=== PATIENT | male | born 1955 | race Caucasian/White ===

== ENCOUNTER 2019-05-22 11:59 | Inpatient (IN) ==
[~2019-05-22 11:59] MED LIST: CYCLOBENZAPRINE 10 MG TABLET PO PRN; DEXTROSE 50% 25 GM/50 ML VIAL IV PRN; GLUCAGON 1 MG VIAL IM PRN; ZALEPLON 5 MG CAPSULE PO PRN
[2019-05-22 14:23] LABS: ABG Base Excess 4.1 MMOL/L (-2.5-2.5); ABG HCO3 27.9 MMOL/L (20-26); ABG Oxygen Saturation 92.9 % (95-100); ABG PCO2 46.4 MM HG (35-48); ABG PH 7.413 (7.35-7.45); ABG PO2 66.6 MM HG (80-95); Allen Test Positive; Pt O2 Delivery Device Room Air
[2019-05-22 14:24] LABS: Basophils % 0.3 % (0.0-0.8); Eosinophils # 0.1 10*3/uL (0.0-0.87); Eosinophils % 0.9 % (0.00-10.9); Hematocrit 46.1 VOL% (42.0-52.0); Hemoglobin 15.3 GM/DL (14.0-18.0); Immature Granulocytes % 0.6 %; Immature Granulocytes Absolute 0.04 #; Lymphocytes # 1.7 10*3/uL (1.4-4.0); Lymphocytes % 24.9 % (21.2-54.2); Mean Corpuscular HGB Conc 33.2 GM/DL (32-36); Mean Corpuscular Volume 94.7 FL (87-102); Mean Platelet Volume 10.2 FL (9.6-12.0); Monocytes % 7.9 % (1.7-12.7); Neutrophils % 65.4 % (38.7-73.9); Platelet Count 177 T/CUMM (130-400); Red Blood Count 4.87 MC/CUMM (3.8-5.5); Red Cell Distribution Width 13.1 % (9.3-17.3); White Blood Count 6.9 T/CUMM (4-12)
[2019-05-22] MEDS ORDERED: SODIUM CHLORIDE 0.9% 1,000 ML IV SCH (14:30)
[2019-05-22 14:42] LABS: Albumin 3.3 G/DL (3.4-5.0); Bilirubin,Total 0.5 MG/DL (0.2-1.0); Calcium 9.2 MG/DL (8.5-10.1); Osmolality,Calculated 282.4 MOS/KG (273-304); Total Protein 7.4 G/DL (6.4-8.3)
[2019-05-22] MEDS: predniSONE 20 MG TABLET PO SCH ×2 (14:53→20:50)
[2019-05-22] MEDS: hydroCHLOROthiazide 12.5 MG CAPSULE PO SCH (14:56)
[2019-05-22] MEDS: CHLORHEXIDINE 4% SOLN 118 ML BOTTLE TOP SCH ×2 (14:57→22:30)
[2019-05-22] MEDS: CHLORHEXIDINE 0.12% ORAL RINSE 60 ML BOTTLE SWISH/SPIT SCH (20:49)
[2019-05-22] MEDS ORDERED: traZODone 50 MG TABLET PO SCH (21:00)
[2019-05-22] MEDS ORDERED: ATORVASTATIN 20 MG TABLET PO SCH (21:00)
[2019-05-23] MEDS ORDERED: VANCOMYCIN 500 MG VIAL ONE (04:21)
[2019-05-23] MEDS ORDERED: VANCOMYCIN 1,000 MG VIAL ONE (04:21)
[2019-05-23] MEDS ORDERED: PAPAVERINE 60 MG/2 ML VIAL ONE (04:21)
[2019-05-23] MEDS ORDERED: FAMOTIDINE 20 MG TABLET PO ONE (05:00)
[2019-05-23] MEDS ORDERED: DIAZEPAM 5 MG TABLET PO ONE (05:00)
[2019-05-23] MEDS ORDERED: CEFUROXIME INJ 1,500 MG in SYRINGE 1 EACH IV ONE (05:00)
[2019-05-23 08:14] LABS: Hemoglobin Heart Surgery 14.3 G/DL (14.0-18.0); PCO2 Patient Temp Venous 54.7 MM HG; PH Patient Temp Venous 7.336; PO2 Patient Temp Venous 43.1 MM HG; Potassium Heart/CVR 4.1 MMOL/L (3.5-5.1); VBG Base Excess 1.6 MEQ/L (0-4); VBG HCO3 28.6 MEQ/L (24-28); VBG Oxygen Saturation 73.7 %; VBG PCO2 54.7 MMHG (41-51); VBG PH 7.336; VBG PO2 43.1 MMHG (17-40)
[2019-05-23] MEDS ORDERED: NITROPRUSSIDE 50 MG/2 ML VIAL ONE (08:24)
[2019-05-23] MEDS ORDERED: PHENYLEPHRINE DRIP 40 MG/250 ML PREMIX IV ONE (08:24)
[2019-05-23] MEDS ORDERED: CALCIUM CHLORIDE 1,000 MG/10 ML SYRINGE IV ONE (08:24)
[2019-05-23] MEDS ORDERED: SODIUM BICARBONATE 50 MEQ/50 ML VIAL IV ONE ×2 (08:24→12:10)
[2019-05-23] MEDS ORDERED: POTASSIUM CHLORIDE RIDER 100 ML IV ONE (08:25)
[2019-05-23 08:44] LABS: Apearance,Urine CLEAR (Clear); Bilirubin,Urine Negative (Negative); Blood, Urine Negative (Negative); Glucose,Urine (UA) Negative (Negative); Ketones,Urine Negative (Negative); Mucus,Urine Many /LPF (Occasional); Nitrite,Urine Negative (Negative); Protein,Urine Negative; RBC,Urine 2 /HPF (0-4); Urine Color Yellow (Yellow); Urine Specific Gravity 1.023 (1.001-1.035); Urine Urobilinogen < 2.0 EU/DL (0.2-1.0); WBC,Urine 1 /HPF (0-6)
[2019-05-23] MEDS: predniSONE 20 MG TABLET PO SCH (09:00)
[2019-05-23] MEDS: CHLORHEXIDINE 4% SOLN 118 ML BOTTLE TOP SCH (09:00)
[2019-05-23] MEDS: hydroCHLOROthiazide 12.5 MG CAPSULE PO SCH (09:00)
[2019-05-23] MEDS: CHLORHEXIDINE 0.12% ORAL RINSE 60 ML BOTTLE SWISH/SPIT SCH ×2 (09:00→21:02)
[2019-05-23 10:14] LABS: Hematocrit Heart Surgery 32.2 PERCENT (42-52); Hemoglobin Heart Surgery 10.4 G/DL (14.0-18.0); PCO2 Patient Temp Venous 35.5 MM HG; PH Patient Temp Venous 7.474; PO2 Patient Temp Venous 37.8 MM HG; Potassium Heart/CVR 4.4 MMOL/L (3.5-5.1); VBG Base Excess 2.7 MEQ/L (0-4); VBG HCO3 26.5 MEQ/L (24-28); VBG Oxygen Saturation 81.9 %; VBG PCO2 39.1 MMHG (41-51); VBG PH 7.445; VBG PO2 43.4 MMHG (17-40)
[2019-05-23 10:41] LABS: Hematocrit Heart Surgery 33.2 PERCENT (42-52); Hemoglobin Heart Surgery 10.7 G/DL (14.0-18.0); PCO2 Patient Temp Venous 31.7 MM HG; PH Patient Temp Venous 7.512; PO2 Patient Temp Venous 34.4 MM HG; Potassium Heart/CVR 4.4 MMOL/L (3.5-5.1); VBG Base Excess 2.9 MEQ/L (0-4); VBG HCO3 26.7 MEQ/L (24-28); VBG Oxygen Saturation 81.8 %; VBG PCO2 36.7 MMHG (41-51); VBG PH 7.467; VBG PO2 42.4 MMHG (17-40)
[2019-05-23 11:10] LABS: Hemoglobin Heart Surgery 11.4 G/DL (14.0-18.0); PCO2 Patient Temp Venous 34.9 MM HG; PH Patient Temp Venous 7.488; PO2 Patient Temp Venous 41.8 MM HG; Potassium Heart/CVR 4.5 MMOL/L (3.5-5.1); VBG Base Excess 2.7 MEQ/L (0-4); VBG HCO3 25.9 MEQ/L (24-28); VBG Oxygen Saturation 79.9 %; VBG PCO2 34.9 MMHG (41-51); VBG PH 7.488; VBG PO2 41.8 MMHG (17-40)
[2019-05-23 11:39] LABS: Hemoglobin Heart Surgery 12.1 G/DL (14.0-18.0); PCO2 Patient Temp Venous 39.6 MM HG; PH Patient Temp Venous 7.452; PO2 Patient Temp Venous 43.4 MM HG; Potassium Heart/CVR 3.9 MMOL/L (3.5-5.1); VBG Base Excess 2.9 MEQ/L (0-4); VBG Oxygen Saturation 80.1 %; VBG PCO2 39.6 MMHG (41-51); VBG PH 7.452; VBG PO2 43.4 MMHG (17-40)
[2019-05-23] MEDS ORDERED: MAGNESIUM SULFATE 5 GM/10 ML VIAL IV ONE (12:08)
[2019-05-23] MEDS ORDERED: HEPARIN 10,000 UNIT/10 ML VIAL ONE ×2 (12:09→13:59)
[2019-05-23] MEDS ORDERED: FUROSEMIDE 20 MG/2 ML VIAL ONE (12:09)
[2019-05-23] MEDS ORDERED: PROTAMINE SULFATE 50 MG/5 ML VIAL IV ONE ×2 (12:09→14:13)
[2019-05-23 12:10] LABS: ABG Oxygen Saturation 98.2 % (95-100); ABG PH 7.479 (7.35-7.45); ABG PO2 134.1 MM HG (80-95); Glucose Heart Surgery 169 MG/DL (74-106); Hemoglobin Heart Surgery 12.3 G/DL (14.0-18.0); Ionized Calcium Arterial 1.22 MMOL/L (1.21-1.46); PH Patient Temp Arterial 7.479; PO2 Patient Temp Arterial 134.1 MM HG; Patient Temperature 37 CELCIUS; Potassium Heart/CVR 3.4 MMOL/L (3.5-5.1); Sodium Heart/CVR 134 MMOL/L (135-145)
[2019-05-23] MEDS ORDERED: DEXTROSE 5% KCL 20 MEQ 20 MEQ/1,000 ML BAG IV ONE (12:10)
[2019-05-23] MEDS ORDERED: LIDOCAINE 2% 5 ML VIAL ONE (12:10)
[2019-05-23] MEDS ORDERED: methylPREDNISolone SOD SUC 1,000 MG/8 ML VIAL ONE (12:10)
[2019-05-23] MEDS: SODIUM CHLORIDE 0.45% 1,000 ML IV SCH (13:10)
[2019-05-23] MEDS ORDERED: POTASSIUM CHLORIDE RIDER 10 MEQ in PREMIX 1 EACH IV PRN (13:14)
[2019-05-23] MEDS ORDERED: INSULIN REGULAR 100 UNIT/ML IV ONE (13:14)
[2019-05-23] MEDS ORDERED: DEXTROSE 10% 250 ML BAG IV PRN ×2 (13:14)
[2019-05-23] MEDS ORDERED: INSULIN REGULAR 100 UNIT/ML IV PRN (13:14)
[2019-05-23] MEDS ORDERED: MORPHINE 10 MG/1 ML VIAL IV PRN (13:14)
[2019-05-23] MEDS ORDERED: VECURONIUM 10 MG VIAL IV PRN ×2 (13:14)
[2019-05-23] MEDS ORDERED: MAGNESIUM SULF RIDER 2 GM in PREMIX 1 EACH IV PRN (13:14)
[2019-05-23] MEDS ORDERED: NITROPRUSSIDE 100 MG in DEXTROSE 5% 250 ML IV PRN (13:14)
[2019-05-23] MEDS ORDERED: MAGNESIUM SULF RIDER 4 GM in PREMIX 1 EACH IV PRN (13:14)
[2019-05-23] MEDS ORDERED: CALCIUM CHLORIDE 1,000 MG/10 ML SYRINGE IV PRN (13:14)
[2019-05-23] MEDS ORDERED: PHENYLEPHRINE DRIP 40 MG/250 ML PREMIX IV PRN (13:14)
[2019-05-23] MEDS ORDERED: MIDAZOLAM 10 MG/2 ML VIAL IV PRN (13:14)
[2019-05-23] MEDS ORDERED: MIDAZOLAM 2 MG/2 ML VIAL IV PRN (13:14)
[2019-05-23] MEDS ORDERED: ACETAMINOPHEN 650 MG SUPP RECTAL PRN (13:14)
[2019-05-23 13:28] LABS: Basophils % 0.2 % (0.0-0.8); Eosinophils % 0.1 % (0.00-10.9); Hematocrit 37.4 VOL% (42.0-52.0); Immature Granulocytes % 0.6 %; Immature Granulocytes Absolute 0.12 #; Lymphocytes # 1.8 10*3/uL (1.4-4.0); Lymphocytes % 9.5 % (21.2-54.2); Mean Corpuscular HGB Conc 33.4 GM/DL (32-36); Mean Corpuscular Volume 94.7 FL (87-102); Mean Platelet Volume 10.5 FL (9.6-12.0); Monocytes % 5.2 % (1.7-12.7); Neutrophils % 84.4 % (38.7-73.9); Red Blood Count 3.95 MC/CUMM (3.8-5.5); Red Cell Distribution Width 13.1 % (9.3-17.3)
[2019-05-23 13:30] LABS: Hemoglobin 12.5 GM/DL (14.0-18.0); Platelet Count 159 T/CUMM (130-400); White Blood Count 18.9 T/CUMM (4-12)
[2019-05-23] MEDS ORDERED: INSULIN REGULAR DRIP 100 ML IV SCH (13:30)
[2019-05-23] MEDS ORDERED: SODIUM CHLORIDE 0.45% 1,000 ML IV SCH (13:30)
[2019-05-23 13:34] LABS: INR 1.1; PT Patient Result 11.4 SECS (9.6-12.2); Partial Thromboplastin Time 26.1 SECS (20.8-36.0)
[2019-05-23 13:50] LABS: Albumin 2.9 G/DL (3.4-5.0); Bilirubin,Total 1.4 MG/DL (0.2-1.0); Osmolality,Calculated 283.4 MOS/KG (273-304); Total Protein 5.9 G/DL (6.4-8.3)
[2019-05-23 13:51] LABS: CKMB % 5.3 %
[2019-05-23 13:56] LABS: Troponin I 4.21 NG/ML (0.00-0.045)
[2019-05-23] MEDS ORDERED: CALCIUM CHLORIDE 1,000 MG/10 ML VIAL IV ONE (13:59)
[2019-05-23] MEDS ORDERED: HEPARIN/NACL 0.9% 2 UNITS/ML 500 ML IV ONE (13:59)
[2019-05-23] MEDS ORDERED: SEVOFLURANE 1 UNIT/15 MINUTE INH ONE (13:59)
[2019-05-23] MEDS ORDERED: VECURONIUM 10 MG VIAL IV ONE (14:00)
[2019-05-23] MEDS ORDERED: MIDAZOLAM 10 MG/2 ML VIAL ONE (14:00)
[2019-05-23] MEDS ORDERED: SUFentanil 250 MCG/5 ML AMP ONE (14:00)
[2019-05-23] MEDS ORDERED: ESMOLOL 100 MG/10 ML VIAL IV ONE (14:00)
[2019-05-23] MEDS ORDERED: NITROGLYCERIN DRIP 50 MG/250 ML BOTTLE IV ONE (14:01)
[2019-05-23] MEDS ORDERED: SODIUM CHLORIDE 0.9% 1,000 ML IV ONE (14:01)
[2019-05-23] MEDS ORDERED: SODIUM CHLORIDE 0.9% 100 ML IV ONE (14:01)
[2019-05-23] MEDS ORDERED: AMINOCAPROIC ACID 5,000 MG/20 ML VIAL ONE (14:01)
[2019-05-23] MEDS ORDERED: LACTATED RINGERS 1,000 ML IV ONE (14:01)
[2019-05-23] MEDS ORDERED: PHENYLEPHRINE DRIP 20 MG/250 ML PREMIX IV ONE (14:02)
[2019-05-23] MEDS: ALBUMIN 5% 12.5 GM in PREMIX 1 EACH IV PRN ×5 (14:10→17:52)
[2019-05-23 14:31] LABS: ABG Base Excess -0.5 MMOL/L (-2.5-2.5); ABG Oxygen Saturation 98.7 % (95-100); ABG PCO2 35.8 MM HG (35-48); ABG PH 7.424 (7.35-7.45); ABG TCO2 20.6 MMOL/L (23-27); Glucose Heart Surgery 163 MG/DL (74-106); Hematocrit Heart Surgery 37.8 PERCENT (42-52); Hemoglobin Heart Surgery 12.3 G/DL (14.0-18.0); Potassium Heart/CVR 3.9 MMOL/L (3.5-5.1)
[2019-05-23] MEDS: KETOROLAC 30 MG/1 ML VIAL IV SCH ×2 (14:46→20:41)
[2019-05-23] MEDS: LACTATED RINGERS 250 ML IV PRN ×3 (15:53→18:05)
[2019-05-23 16:30] LABS: ABG Base Excess -0.6 MMOL/L (-2.5-2.5); ABG HCO3 23.9 MMOL/L (20-26); ABG PCO2 35.5 MM HG (35-48); ABG PH 7.426 (7.35-7.45); ABG TCO2 20.8 MMOL/L (23-27); Glucose Heart Surgery 149 MG/DL (74-106); Hematocrit Heart Surgery 34.6 PERCENT (42-52); Hemoglobin Heart Surgery 11.2 G/DL (14.0-18.0); Potassium Heart/CVR 3.9 MMOL/L (3.5-5.1)
[2019-05-23 18:20] LABS: ABG Base Excess -1.5 MMOL/L (-2.5-2.5); ABG HCO3 23.2 MMOL/L (20-26); ABG Oxygen Saturation 95.8 % (95-100); ABG PCO2 45.2 MM HG (35-48); ABG PH 7.341 (7.35-7.45); ABG PO2 86.6 MM HG (80-95); ABG TCO2 22.2 MMOL/L (23-27); Glucose Heart Surgery 150 MG/DL (74-106); Potassium Heart/CVR 4.2 MMOL/L (3.5-5.1)
[2019-05-23 18:21] LABS: Hematocrit Heart Surgery 33.1 PERCENT (42-52); Hemoglobin Heart Surgery 10.7 G/DL (14.0-18.0)
[2019-05-23] MEDS ORDERED: FUROSEMIDE 40 MG/4 ML VIAL IV ONE (18:31)
[2019-05-23] MEDS ORDERED: FUROSEMIDE 40 MG/4 ML VIAL IV PRN (18:39)
[2019-05-23] MEDS: POTASSIUM CHLORIDE RIDER 20 MEQ in PREMIX 1 EACH IV PRN ×2 (20:01→22:53)
[2019-05-23] MEDS: MORPHINE 4 MG/1 ML VIAL IV PRN (20:46)
[2019-05-23] MEDS: CEFUROXIME INJ 1,500 MG in SYRINGE 1 EACH IV SCH (21:03)
[2019-05-23 21:14] LABS: ABG Base Excess 0.4 MMOL/L (-2.5-2.5); ABG HCO3 26.7 MMOL/L (20-26); ABG Oxygen Saturation 95.9 % (95-100); ABG PCO2 50.6 MM HG (35-48); ABG PO2 92.7 MM HG (80-95); ABG TCO2 28.2 MMOL/L (23-27); Glucose Heart Surgery 144 MG/DL (74-106); Hemoglobin Heart Surgery 11.3 G/DL (14.0-18.0); Potassium Heart/CVR 4.4 MMOL/L (3.5-5.1)
[2019-05-23 22:02] LABS: CKMB % 10.1 %
[2019-05-23 22:04] LABS: Troponin I 17.3 NG/ML (0.00-0.045)
[2019-05-23 22:06] LABS: ABG Base Excess -1.8 MMOL/L (-2.5-2.5); ABG HCO3 22.9 MMOL/L (20-26); ABG Oxygen Saturation 94.8 % (95-100); ABG PCO2 58.4 MM HG (35-48); ABG PH 7.262 (7.35-7.45); ABG PO2 87.3 MM HG (80-95); ABG TCO2 24.1 MMOL/L (23-27); Glucose Heart Surgery 160 MG/DL (74-106); Hematocrit Heart Surgery 34.2 PERCENT (42-52); Hemoglobin Heart Surgery 11.1 G/DL (14.0-18.0); Potassium Heart/CVR 4.3 MMOL/L (3.5-5.1)
[2019-05-23] MEDS: ONDANSETRON 4 MG/2 ML VIAL IV PRN (22:30)
[2019-05-24] MEDS: MORPHINE 4 MG/1 ML VIAL IV PRN ×5 (00:02→18:17)
[2019-05-24 01:17] LABS: ABG Base Excess 1.1 MMOL/L (-2.5-2.5); ABG HCO3 24.4 MMOL/L (20-26); ABG Oxygen Saturation 97.2 % (95-100); ABG PCO2 34.1 MM HG (35-48); ABG PH 7.473 (7.35-7.45); ABG PO2 99.8 MM HG (80-95); ABG TCO2 25.5 MMOL/L (23-27); Glucose Heart Surgery 125 MG/DL (74-106); Hemoglobin Heart Surgery 10.9 G/DL (14.0-18.0); Potassium Heart/CVR 4.3 MMOL/L (3.5-5.1)
[2019-05-24] MEDS: KETOROLAC 30 MG/1 ML VIAL IV SCH ×4 (01:22→20:19)
[2019-05-24] MEDS: POTASSIUM CHLORIDE RIDER 20 MEQ in PREMIX 1 EACH IV PRN ×2 (01:25→06:06)
[2019-05-24 02:44] LABS: ABG Base Excess -0.1 MMOL/L (-2.5-2.5); ABG HCO3 24.3 MMOL/L (20-26); ABG Oxygen Saturation 96.2 % (95-100); ABG PCO2 54.3 MM HG (35-48); ABG PH 7.306 (7.35-7.45); ABG PO2 93.2 MM HG (80-95); ABG TCO2 24.6 MMOL/L (23-27); Glucose Heart Surgery 132 MG/DL (74-106); Hematocrit Heart Surgery 33.8 PERCENT (42-52); Potassium Heart/CVR 4.3 MMOL/L (3.5-5.1)
[2019-05-24 04:21] LABS: Basophils % 0.1 % (0.0-0.8); Hematocrit 31.5 VOL% (42.0-52.0); Hemoglobin 10.3 GM/DL (14.0-18.0); Immature Granulocytes % 0.5 %; Immature Granulocytes Absolute 0.07 #; Lymphocytes # 0.7 10*3/uL (1.4-4.0); Lymphocytes % 5.2 % (21.2-54.2); Mean Corpuscular HGB Conc 32.7 GM/DL (32-36); Mean Corpuscular Volume 96.9 FL (87-102); Mean Platelet Volume 10.9 FL (9.6-12.0); Monocytes % 5.8 % (1.7-12.7); Neutrophils % 88.4 % (38.7-73.9); Platelet Count 144 T/CUMM (130-400); Red Blood Count 3.25 MC/CUMM (3.8-5.5); Red Cell Distribution Width 13.5 % (9.3-17.3); White Blood Count 13.9 T/CUMM (4-12)
[2019-05-24 04:51] LABS: Albumin 3.4 G/DL (3.4-5.0); Bilirubin,Direct 0.17 MG/DL (0.0-0.20); Bilirubin,Total 0.7 MG/DL (0.2-1.0); Osmolality,Calculated 283.4 MOS/KG (273-304); Total Protein 6.1 G/DL (6.4-8.3)
[2019-05-24 04:57] LABS: Troponin I 23.1 NG/ML (0.00-0.045)
[2019-05-24 05:41] LABS: ABG Base Excess 0.3 MMOL/L (-2.5-2.5); ABG HCO3 24.7 MMOL/L (20-26); ABG Oxygen Saturation 96.4 % (95-100); ABG PCO2 51.3 MM HG (35-48); ABG PH 7.329 (7.35-7.45); ABG PO2 92.6 MM HG (80-95); ABG TCO2 24.5 MMOL/L (23-27); Glucose Heart Surgery 142 MG/DL (74-106); Hematocrit Heart Surgery 33.3 PERCENT (42-52); Hemoglobin Heart Surgery 10.8 G/DL (14.0-18.0); Potassium Heart/CVR 4.3 MMOL/L (3.5-5.1)
[2019-05-24 07:41] LABS: ABG HCO3 24.4 MMOL/L (20-26); ABG Oxygen Saturation 96.2 % (95-100); ABG PCO2 58.5 MM HG (35-48); ABG PH 7.285 (7.35-7.45); ABG PO2 92.8 MM HG (80-95); ABG TCO2 25.4 MMOL/L (23-27); Glucose Heart Surgery 139 MG/DL (74-106); Hematocrit Heart Surgery 32.7 PERCENT (42-52); Hemoglobin Heart Surgery 10.6 G/DL (14.0-18.0); Potassium Heart/CVR 4.6 MMOL/L (3.5-5.1)
[2019-05-24] MEDS: INSULIN REGULAR 100 UNIT/ML SUBCUT SCH ×4 (08:10→20:15)
[2019-05-24] MEDS ORDERED: ZALEPLON 5 MG CAPSULE PO PRN (08:20)
[2019-05-24] MEDS ORDERED: DEXTROSE 50% 25 GM/50 ML VIAL IV PRN (08:21)
[2019-05-24] MEDS ORDERED: GLUCAGON 1 MG VIAL IM PRN (08:21)
[2019-05-24] MEDS ORDERED: FUROSEMIDE 40 MG/4 ML VIAL IV ONE ×2 (08:23→23:55)
[2019-05-24] MEDS: hydroCHLOROthiazide 12.5 MG CAPSULE PO SCH (09:05)
[2019-05-24] MEDS: predniSONE 20 MG TABLET PO SCH ×2 (09:15→21:51)
[2019-05-24] MEDS: CHLORHEXIDINE 0.12% ORAL RINSE 60 ML BOTTLE SWISH/SPIT SCH ×2 (09:20→21:51)
[2019-05-24] MEDS: CEFUROXIME INJ 1,500 MG in SYRINGE 1 EACH IV SCH ×2 (09:20→21:51)
[2019-05-24] MEDS: CYCLOBENZAPRINE 10 MG TABLET PO PRN ×2 (14:15→21:52)
[2019-05-24 14:22] LABS: CKMB % 8.3 %
[2019-05-24 14:26] LABS: Troponin I 11.7 NG/ML (0.00-0.045)
[2019-05-24] MEDS: SODIUM CHLORIDE 0.45% 1,000 ML IV SCH (19:08)
[2019-05-24] MEDS: ONDANSETRON 4 MG/2 ML VIAL IV PRN (20:22)
[2019-05-24] MEDS: ATORVASTATIN 20 MG TABLET PO SCH (21:51)
[2019-05-24] MEDS: traZODone 50 MG TABLET PO SCH (21:51)
[2019-05-25] MEDS: INSULIN REGULAR 100 UNIT/ML SUBCUT SCH ×7 (00:05→23:56)
[2019-05-25 05:21] LABS: Basophils % 0.1 % (0.0-0.8); Hemoglobin 10.1 GM/DL (14.0-18.0); Immature Granulocytes % 0.7 %; Lymphocytes # 0.8 10*3/uL (1.4-4.0); Lymphocytes % 5.6 % (21.2-54.2); Mean Corpuscular HGB Conc 31.6 GM/DL (32-36); Mean Corpuscular Volume 100.3 FL (87-102); Mean Platelet Volume 10.9 FL (9.6-12.0); Monocytes % 7.2 % (1.7-12.7); Neutrophils % 86.4 % (38.7-73.9); Platelet Count 127 T/CUMM (130-400); Red Blood Count 3.19 MC/CUMM (3.8-5.5); Red Cell Distribution Width 13.6 % (9.3-17.3); White Blood Count 13.7 T/CUMM (4-12)
[2019-05-25 05:42] LABS: Albumin 3.3 G/DL (3.4-5.0); Bilirubin,Direct 0.13 MG/DL (0.0-0.20); Bilirubin,Total 0.5 MG/DL (0.2-1.0); Osmolality,Calculated 287.4 MOS/KG (273-304)
[2019-05-25] MEDS: MORPHINE 4 MG/1 ML VIAL IV PRN (08:29)
[2019-05-25] MEDS: predniSONE 20 MG TABLET PO SCH ×2 (09:32→21:15)
[2019-05-25] MEDS: hydroCHLOROthiazide 12.5 MG CAPSULE PO SCH (09:32)
[2019-05-25] MEDS: METOPROLOL SUCCINATE XL 25 MG TABLET PO SCH (09:32)
[2019-05-25] MEDS: CHLORHEXIDINE 0.12% ORAL RINSE 60 ML BOTTLE SWISH/SPIT SCH ×3 (09:33→21:17)
[2019-05-25] MEDS ORDERED: GLUCAGON 1 MG VIAL IM PRN ×2 (11:50)
[2019-05-25] MEDS ORDERED: POTASSIUM CHLORIDE 20 MEQ TABLET PO PRN (11:50)
[2019-05-25] MEDS ORDERED: MAGNESIUM HYDROXIDE SUSP 30 ML UDCUP PO PRN (11:50)
[2019-05-25] MEDS ORDERED: MAGNESIUM SULF RIDER 2 GM in PREMIX 1 EACH IV PRN (11:50)
[2019-05-25] MEDS ORDERED: SODIUM CHLOR 0.45% KCL 20 MEQ 20 MEQ/1,000 ML BAG IV SCH (11:50)
[2019-05-25] MEDS ORDERED: ZALEPLON 5 MG CAPSULE PO PRN (11:50)
[2019-05-25] MEDS ORDERED: ONDANSETRON 4 MG/2 ML VIAL IV PRN (11:50)
[2019-05-25] MEDS ORDERED: ACETAMINOPHEN 325 MG TABLET PO PRN (11:50)
[2019-05-25] MEDS ORDERED: DEXTROSE 50% 25 GM/50 ML VIAL IV PRN ×2 (11:50)
[2019-05-25] MEDS ORDERED: ALUMINUM/MAGNES/SIMETH MAX STR 30 ML UDCUP PO PRN (11:50)
[2019-05-25] MEDS ORDERED: MAGNESIUM SULF RIDER 4 GM in PREMIX 1 EACH IV PRN (11:50)
[2019-05-25] MEDS: PANTOPRAZOLE 40 MG TABLET PO SCH (12:23)
[2019-05-25] MEDS: DOCUSATE SODIUM 100 MG CAPSULE PO SCH (12:23)
[2019-05-25] MEDS: ASPIRIN EC 325 MG TABLET PO SCH (12:24)
[2019-05-25] MEDS: FERROUS SULFATE 325 MG TABLET PO SCH (12:24)
[2019-05-25] MEDS: KETOROLAC 30 MG/1 ML VIAL IV SCH ×3 (12:25→23:55)
[2019-05-25] MEDS: traZODone 50 MG TABLET PO SCH (21:15)
[2019-05-25] MEDS: ATORVASTATIN 20 MG TABLET PO SCH (21:16)
[2019-05-26 04:36] LABS: Hematocrit 29.6 VOL% (42.0-52.0); Hemoglobin 9.6 GM/DL (14.0-18.0); Immature Granulocytes % 0.7 %; Immature Granulocytes Absolute 0.08 #; Lymphocytes # 0.7 10*3/uL (1.4-4.0); Lymphocytes % 5.5 % (21.2-54.2); Mean Corpuscular HGB Conc 32.4 GM/DL (32-36); Mean Corpuscular Volume 98.3 FL (87-102); Mean Platelet Volume 11.4 FL (9.6-12.0); Monocytes % 8.6 % (1.7-12.7); Neutrophils % 85.2 % (38.7-73.9); Platelet Count 125 T/CUMM (130-400); Red Blood Count 3.01 MC/CUMM (3.8-5.5); Red Cell Distribution Width 13.6 % (9.3-17.3)
[2019-05-26 04:57] LABS: Alanine Aminotransferase 25 U/L (16-61); Albumin 2.8 G/DL (3.4-5.0); Alkaline Phosphatase 50 U/L (45-117); Aspartate Amino Transferase 39 U/L (0-37); Bilirubin,Indirect 0.3 MG/DL (0.0-1.0); Bilirubin,Total < 0.39 MG/DL (0.2-1.0); Blood Urea Nitrogen 33 MG/DL (7-18); CKMB % 1.1 %; Calcium 8.6 MG/DL (8.5-10.1); Estimated Glom Filtration Rate 130 ML/MIN; Glucose 148 MG/DL (74-106); Osmolality,Calculated 290.3 MOS/KG (273-304); Total Protein 6.1 G/DL (6.4-8.3)
[2019-05-26] MEDS ORDERED: FUROSEMIDE 40 MG/4 ML VIAL IV ONE (06:00)
[2019-05-26] MEDS: KETOROLAC 30 MG/1 ML VIAL IV SCH ×3 (06:12→17:34)
[2019-05-26] MEDS: INSULIN REGULAR 100 UNIT/ML SUBCUT SCH ×4 (07:50→21:03)
[2019-05-26] MEDS: METOPROLOL SUCCINATE XL 25 MG TABLET PO SCH (08:47)
[2019-05-26] MEDS: FERROUS SULFATE 325 MG TABLET PO SCH (08:48)
[2019-05-26] MEDS: CYCLOBENZAPRINE 10 MG TABLET PO PRN (08:48)
[2019-05-26] MEDS: ASPIRIN EC 325 MG TABLET PO SCH (08:48)
[2019-05-26] MEDS: hydroCHLOROthiazide 12.5 MG CAPSULE PO SCH (08:48)
[2019-05-26] MEDS: predniSONE 20 MG TABLET PO SCH ×2 (08:49→21:06)
[2019-05-26] MEDS: PANTOPRAZOLE 40 MG TABLET PO SCH (08:49)
[2019-05-26] MEDS: DOCUSATE SODIUM 100 MG CAPSULE PO SCH (08:49)
[2019-05-26] MEDS: CHLORHEXIDINE 0.12% ORAL RINSE 60 ML BOTTLE SWISH/SPIT SCH ×2 (08:53→21:16)
[2019-05-26] MEDS: traZODone 50 MG TABLET PO SCH (21:05)
[2019-05-26] MEDS: ATORVASTATIN 20 MG TABLET PO SCH (21:06)
[2019-05-27] MEDS: KETOROLAC 30 MG/1 ML VIAL IV SCH ×5 (00:20→23:03)
[2019-05-27 05:01] LABS: Hematocrit 28.5 VOL% (42.0-52.0); Hemoglobin 9.2 GM/DL (14.0-18.0); Immature Granulocytes % 0.8 %; Immature Granulocytes Absolute 0.07 #; Lymphocytes # 0.8 10*3/uL (1.4-4.0); Lymphocytes % 9.2 % (21.2-54.2); Mean Corpuscular HGB Conc 32.3 GM/DL (32-36); Mean Corpuscular Volume 98.3 FL (87-102); Mean Platelet Volume 11.4 FL (9.6-12.0); Monocytes % 7.8 % (1.7-12.7); Neutrophils % 82.2 % (38.7-73.9); Platelet Count 137 T/CUMM (130-400); Red Cell Distribution Width 13.5 % (9.3-17.3); White Blood Count 8.6 T/CUMM (4-12)
[2019-05-27 05:28] LABS: Alanine Aminotransferase 47 U/L (16-61); Albumin 2.5 G/DL (3.4-5.0); Alkaline Phosphatase 53 U/L (45-117); Aspartate Amino Transferase 39 U/L (0-37); Bilirubin,Indirect 0.3 MG/DL (0.0-1.0); Blood Urea Nitrogen 36 MG/DL (7-18); Calcium 8.2 MG/DL (8.5-10.1); Estimated Glom Filtration Rate 137 ML/MIN; Glucose 155 MG/DL (74-106); Osmolality,Calculated 287.5 MOS/KG (273-304); Total Protein 5.8 G/DL (6.4-8.3)
[2019-05-27] MEDS: INSULIN REGULAR 100 UNIT/ML SUBCUT SCH ×4 (09:25→21:53)
[2019-05-27] MEDS: FERROUS SULFATE 325 MG TABLET PO SCH (09:26)
[2019-05-27] MEDS: DOCUSATE SODIUM 100 MG CAPSULE PO SCH (09:26)
[2019-05-27] MEDS: predniSONE 20 MG TABLET PO SCH ×2 (09:26→21:53)
[2019-05-27] MEDS: PANTOPRAZOLE 40 MG TABLET PO SCH (09:26)
[2019-05-27] MEDS: METOPROLOL SUCCINATE XL 25 MG TABLET PO SCH (09:26)
[2019-05-27] MEDS: hydroCHLOROthiazide 12.5 MG CAPSULE PO SCH (09:26)
[2019-05-27] MEDS: ASPIRIN EC 325 MG TABLET PO SCH (09:26)
[2019-05-27] MEDS: CHLORHEXIDINE 0.12% ORAL RINSE 60 ML BOTTLE SWISH/SPIT SCH ×2 (09:27→22:55)
[2019-05-27] MEDS: ATORVASTATIN 20 MG TABLET PO SCH (21:53)
[2019-05-27] MEDS: traZODone 50 MG TABLET PO SCH (21:53)
[2019-05-28] MEDS: KETOROLAC 30 MG/1 ML VIAL IV SCH (05:36)
[2019-05-28] MEDS: INSULIN REGULAR 100 UNIT/ML SUBCUT SCH (08:18)
[2019-05-28] MEDS: hydroCHLOROthiazide 12.5 MG CAPSULE PO SCH (09:26)
[2019-05-28] MEDS: PANTOPRAZOLE 40 MG TABLET PO SCH (09:26)
[2019-05-28] MEDS: ASPIRIN EC 325 MG TABLET PO SCH (09:26)
[2019-05-28] MEDS: predniSONE 20 MG TABLET PO SCH (09:26)
[2019-05-28] MEDS: METOPROLOL SUCCINATE XL 25 MG TABLET PO SCH (09:26)
[2019-05-28] MEDS: DOCUSATE SODIUM 100 MG CAPSULE PO SCH (09:26)
[2019-05-28] MEDS: CHLORHEXIDINE 0.12% ORAL RINSE 60 ML BOTTLE SWISH/SPIT SCH (09:27)
[2019-05-28] MEDS: FERROUS SULFATE 325 MG TABLET PO SCH (09:27)
[2019-05-28 12:35] VITALS: BP 156/103
== END 2019-05-28 12:30 | disposition home or self-care (01) | DRG 236 ==
LOC: N.4E 12:55 → N.CVR 05-23 07:18 → N.ICU 05-24 11:28 → N.TELES 05-25 11:38